=== PATIENT | male | born 1955 | race Hispanic/Latino ===

== ENCOUNTER 2019-08-31 18:51 | Emergency (ER) | payer BC ==
[~2019-08-31] VITALS: Ht 165.1 cm; Wt 108.9 kg
[2019-08-31] MEDS ORDERED: KETOROLAC TROMETHAMINE 60 MG/2 ML VIAL IM ONE (20:00)
[2019-08-31] MEDS ORDERED: CLINDAMYCIN PHOS 600 MG/ 4 ML VIAL IM ONE (20:00)
[2019-08-31] MEDS ORDERED: TRIMETHOPRIM/SULFAMETHOXAZOLE 160-800 MG TAB PO ONE (20:00)
[2019-08-31] MEDS ORDERED: ULTRAM50 MG PO (22:15)
[2019-08-31] MEDS ORDERED: BACTRIM DS TAB1 EACH PO (22:15)
[2019-08-31] MEDS ORDERED: CLINDAMYCIN HC300 MG PO (22:15)
[2019-08-31] MEDS ORDERED: KETOROLAC TROME10 MG PO (22:15)
[2019-08-31 22:30] VITALS: BP 165/88
== END 2019-08-31 22:30 | disposition home or self-care (01) ==
LOC: FSED 18:51
DX: L02.11 Cutaneous abscess of neck (principal); L03.221 Cellulitis of neck
CPT/HCPCS: 10061; 96372; 99283; J1885; 10060

== ENCOUNTER → 2019-11-05 | Day surgery (SDC) | payer BC, OTHER ==
[2019-11-02 15:44] LABS: BASOPHILS # (AUTO) 0.1 (0.0-0.1); BASOPHILS % 0.7 % (0.0-1.0); EOSINOPHILS # (AUTO) 0.3 (0.0-0.4); EOSINOPHILS % 2.7 % (0.0-6.0); HEMATOCRIT 44.4 % (38.2-49.6); HEMOGLOBIN 14.7 g/dL (14.0-18.0); LYMPHOCYTES # (AUTO) 3.3 (1.0-3.2); LYMPHOCYTES % 28.2 % (18.0-39.1); MEAN CORPUSCULAR HEMOGLOBIN 29.6 pg (28-32); MEAN CORPUSCULAR HGB CONC 33.1 g/dL (31-35); MEAN CORPUSCULAR VOLUME 89.5 fL (81-99); MONOCYTES % 8.8 % (4.4-11.3); NEUTROPHILS # (AUTO) 6.9 (2.1-6.9); NEUTROPHILS % 59.3 % (38.7-80.0); PLATELET COUNT 207 x10e3/uL (140-360); RED BLOOD COUNT 4.96 x10e6/uL (4.3-5.7); RED CELL DISTRIBUTION WIDTH 13.7 % (11.7-14.4)
[~2019-11-05] MED LIST: AMLODIPINE BESYL5 MG PO; BACTRIM DS TAB1 EACH PO; BUPIVACAINE 0.25%/EPI 30ML SDV INJ ONE; CEFAZOLIN SOD 1 GM VIAL ONE; CLINDAMYCIN HC300 MG PO; CO Q-10200 MG PEG; CRESTOR10 MG PO; EPHEDRINE SULFATE INJ 50 MG/ML VIAL ONE; KETOROLAC TROME10 MG PO; LIDOCAINE HCL 2% LOCAL INJ 5 ML SDV VIAL INJ ONE; MICARDIS40 MG PO; ONDANSETRON HCL INJ 2MG/ML 2ML 2 MG/ML VIAL ONE; PHENYLEPHRINE HCL 1% 10 MG/ML VIAL ONE; PROPOFOL IV EMULSION 10 MG/ML 20 ML VIAL ONE; SEVOFLURANE INHAL SOLN 250 ML PEN BTL ONE; ULTRAM50 MG PO
--- NOTE | 2019-11-05 07:15 | NUR ---
SPIRITUAL CARE - Pre-Surgery Assessment: Pt in bed. Pt's at bedside. Pt reported supportive attention from family and friends. Intervention: I provided pastoral presence, hospitality, and sympathetic listening. I acquainted pt with availability of manager acquisition while hospitalized. Outcome: Pt expressed appreciation for visit. No need for follow up indicated at this time. XANDER Bauerlain Spiritual Care Department O: [phone]
[2019-11-05 11:48] VITALS: BP 140/86
--- NOTE | 2019-11-05 12:33 | Operative Report ---
DATE OF PROCEDURE: 11/05/2019 SURGEON: Logan Tolentino MD PREOPERATIVE DIAGNOSIS: Recurrent cystic mass of the upper back and lower neck. POSTOPERATIVE DIAGNOSIS: Recurrent cystic mass of the upper back and lower neck. OPERATION PERFORMED: Excision of recurrent mass of the upper back and lower neck. ANESTHESIA: General. COMPLICATIONS: None. ESTIMATED BLOOD LOSS: Minimal. DESCRIPTION OF PROCEDURE: With the patient lying in bed in the lateral position under good general anesthesia, the upper back and neck were prepped with Betadine solution and draped in the usual manner. An elliptical incision was then made to excise the previous incision that the patient had an along with the fistulous tract to the skin. The excision was probably about 6 x 3 cm. Incision was deepened through the subcutaneous tissue all the way down to the fascia were the cystic component extended to and it was totally and completely removed and sent for pathological examination. Hemostasis was ascertained. The whole area was then thoroughly irrigated and the subcutaneous tissue was then reapproximated with 3-0 Vicryl and the skin was closed with interrupted vertical mattress sutures of 3-0 nylon. A dressing was applied. The sponge, lap, and needle counts were correct. The patient tolerated the procedure well and returned to the recovery room in stable condition. MD MOLLY GleasonR/MODL /[id number]
== END | disposition home or self-care (01) ==
LOC: OR 06:05
PROVIDERS: ATTEND Surgery
DX: L05.91 Pilonidal cyst without abscess (principal); I10 Essential (primary) hypertension; Z01.810 Encounter for preprocedural cardiovascular examination; Z01.812 Encounter for preprocedural laboratory examination; Z11.59 Encounter for screening for other viral diseases
CPT/HCPCS: 11770; 36415; 85025; 87635; 88304; 93005; J0690; J2001; J2370; J2405; J2704